=== PATIENT | female | born 1995 | race Caucasian/White ===

== ENCOUNTER 2019-05-11 19:22 | Inpatient (IN) ==
[2019-05-11] MEDS ORDERED: BRETHINE SUBQ PRN (19:29)
[2019-05-11] MEDS ORDERED: TYLENOL PO PRN (19:29)
[2019-05-11] MEDS ORDERED: LR 1,000 ML IV ONE (19:29)
[2019-05-11] MEDS ORDERED: PEPCID PO ONE (19:29)
[2019-05-11] MEDS ORDERED: KEFZOL 1 GM/D5W 1 GM/50 ML IVPB IV PRN (19:29)
[2019-05-11] MEDS ORDERED: PEPCID IV PRN (19:29)
[2019-05-11] MEDS ORDERED: ZOFRAN IV PRN (19:29)
[2019-05-11] MEDS ORDERED: PEPCID PO PRN (19:29)
[2019-05-11] MEDS ORDERED: STADOL IV PRN ×3 (19:29)
[2019-05-11 20:25] LABS: BASO# 0.01 X1000 (0.0-0.2); BASO% 0.1 % (0.0-0.8); EOS# 0.14 X1000 (0.0-0.7); EOS% 1.6 % (0.0-10.0); HEMATOCRIT 40.3 % (37.0-47.0); HEMOGLOBIN 13.6 g/dL (12.0-16.0); IMM GRAN# 0.08 X1000 (0.0-0.04); IMM GRAN% 0.9 % (0.0-0.5); LYMPH# 2.32 X1000 (1.2-3.4); MCH 30.9 PG (27-31); MCHC 33.7 g/dL (33-37); MCV 91.6 FL (81-99); MONO# 1.13 X1000 (0.11-0.59); MONO% 13.1 % (1.7-9.3); MPV 11.5 FL (7.4-10.4); NEUT# 4.92 X1000 (1.4-6.5); NEUT% 57.3 % (42.2-75.2); PLT 219 X1000 (130-400); RDW 13.7 % (11.5-14.5)
[2019-05-11] MEDS ORDERED: CYTOTEC VAG SCH (21:00)
[2019-05-11] MEDS: AMBIEN PO PRN (22:06)
[2019-05-12] MEDS ORDERED: CYTOTEC VAG ONE (04:00)
[2019-05-12] MEDS ORDERED: PITOCIN 30 UNITS/NS 30 UNIT/500 ML IV.SOLN IV SCH (07:00)
[2019-05-12] MEDS ORDERED: XYLOCAINE-MPF 1% INJ ONE (07:20)
[2019-05-12] MEDS ORDERED: MINERAL OIL TOP ONE (07:20)
[2019-05-12] MEDS ORDERED: NAROPIN 0.2% INJ ONE (08:00)
[2019-05-12] MEDS ORDERED: FENTANYL-BUPIV-NS 500 MCG-0.125% 250 ML EPIDURAL SCH (08:00)
[2019-05-12] MEDS: LR 1,000 ML IV SCH ×3 (08:16→18:13)
[2019-05-12] MEDS ORDERED: KEFZOL 2 GM/D5W 2 GM/50 ML IVPB IV ONE (13:41)
[2019-05-12] MEDS ORDERED: BICITRA PO ONE (13:41)
[2019-05-12] MEDS: REGLAN PO ONE ×2 (13:50→13:51)
[2019-05-12] MEDS ORDERED: MARCAINE 0.5% PF ONE (13:55)
[2019-05-12] MEDS ORDERED: MORPHINE ONE (14:22)
[2019-05-12] MEDS ORDERED: DEMEROL ONE (14:23)
[2019-05-12] MEDS ORDERED: PITOCIN IV ONE (14:24)
[2019-05-12] MEDS ORDERED: PITOCIN ONE (14:24)
--- NOTE | 2019-05-12 14:50 | HISTORY AND PHYSICAL ---
HISTORY OF PRESENT ILLNESS: Ms. Gallegos is a 23-year-old, G1, P0, at 39 weeks and 4 days who presents for elective induction of labor. Reports good movement. Denies contractions, leakage of fluid, or vaginal bleeding. PAST MEDICAL HISTORY: Includes right leg herpetic lesion, resolved antepartum with valacyclovir, recurrent UTIs, tobacco abuse, failed 1 hour oral glucose tolerance test with a normal 3 hour glucose tolerance test. CURRENT MEDICATIONS: Zoloft 50 mg daily, valacyclovir 1000 mg daily, vitamins daily. ALLERGIES: No known drug allergies. FAMILY HISTORY: Mother with ovarian cancer. 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 Denies STD exposure. OBSTETRICAL HISTORY: G1, P0, uncomplicated current . SOCIAL HISTORY: Positive tobacco use. Denies alcohol or drug use. SURGICAL HISTORY: None. PHYSICAL EXAMINATION: VITAL SIGNS: Temperature 97.5 degrees, pulse rate 67, respirations 16, blood pressure 128/73. PHYSICAL EXAMINATION: GENERAL: No acute distress. Alert, awake, oriented x3. CARDIOVASCULAR: Regular rate and rhythm. Positive S1, S2. RESPIRATORY: Clear to auscultation bilaterally. Negative rhonchi, rales, or wheezing. ABDOMEN: Gravid, nontender to palpation. PELVIC: Vaginal exam, 4 cm dilated, 80% effaced, -2 station. Electronic monitoring 145 beats per minute baseline, negative accelerations, moderate variability, and recurrent late decelerations. Grants contractions occurring every 2 to 4 minutes. LABORATORY: WBCs 8.6, hemoglobin 13.6, hematocrit 40.3, platelets 219,000. RPR nonreactive. Gonorrhea negative. Chlamydia negative. HIV negative. ASSESSMENT: Ms. Gallegos is a 23-year-old, G1, P0, at 39 weeks and 5 days who presents for elective induction of labor with category 3 tracing. PLAN: Induce with Cytotec per vagina 25 mcg x1 dose. Augmentation with Pitocin. Pain management with epidural. Resuscitative measures performed with category 3 tracing. No resolution requiring urgent delivery. Patient counseled on risks, benefits, alternatives to induction. The patient understands risks not limited to infection, bleeding, vaginal laceration, vacuum delivery, and emergency . Risks of not limited to infection, bleeding, injury to surrounding organs including bowel, bladder, and ureter. The patient understands risks and agrees to procedure. [facility]
[2019-05-12] MEDS ORDERED: PITOCIN 20 UNITS/NS 20 UNITS/1,000 ML IV.SOLN IV ONE (15:04)
[2019-05-12] MEDS ORDERED: AMBIEN PO PRN (15:04)
[2019-05-12] MEDS ORDERED: ATARAX PO PRN (15:04)
[2019-05-12] MEDS ORDERED: PITOCIN IM PRN (15:04)
[2019-05-12] MEDS ORDERED: M-M-R II VACCINE SUBQ ONE (15:04)
[2019-05-12] MEDS ORDERED: DEMEROL PO PRN ×2 (15:04)
[2019-05-12] MEDS ORDERED: DEMEROL IM PRN (15:04)
[2019-05-12] MEDS ORDERED: DULCOLAX PR PRN (15:04)
[2019-05-12] MEDS ORDERED: BOOSTRIX VACCINE IM ONE (15:04)
[2019-05-12] MEDS ORDERED: MYLICON PO PRN (15:04)
[2019-05-12] MEDS ORDERED: HYDROXYZINE IM PRN (15:04)
[2019-05-12] MEDS ORDERED: PHENERGAN IM PRN (15:04)
[2019-05-12] MEDS ORDERED: PITOCIN 10 UNITS/NS 1,000 ML IV SCH (15:15)
[2019-05-12] MEDS ORDERED: NARCAN IV PRN (15:45)
[2019-05-12] MEDS ORDERED: BENADRYL IV PRN (15:45)
[2019-05-12] MEDS ORDERED: ZOFRAN IV PRN (16:00)
[2019-05-12] MEDS ORDERED: PHENERGAN IV PRN (16:00)
[2019-05-12] MEDS ORDERED: SODIUM CHLORIDE 0.9% INJ PRN (16:00)
[2019-05-12] MEDS: MORPHINE PCA IV PRN (17:04)
[2019-05-12] MEDS: TORADOL IV SCH ×2 (17:16→22:11)
[2019-05-12] MEDS: OFIRMEV 1000 MG/ISOTONIC SOLN 1,000 MG/100 ML BOTTLE IV SCH (18:05)
[2019-05-12] MEDS: MYLICON PO SCH ×2 (18:08→22:11)
[2019-05-12] MEDS: PERICOLACE PO SCH (22:11)
[2019-05-13] MEDS: OFIRMEV 1000 MG/ISOTONIC SOLN 1,000 MG/100 ML BOTTLE IV SCH ×2 (00:25→06:10)
[2019-05-13] MEDS: MORPHINE PCA IV PRN (03:17)
[2019-05-13] MEDS: TORADOL IV SCH ×2 (04:00→10:19)
[2019-05-13 05:25] LABS: BASO# 0.02 X1000 (0.0-0.2); BASO% 0.2 % (0.0-0.8); EOS# 0.11 X1000 (0.0-0.7); EOS% 1.2 % (0.0-10.0); HEMATOCRIT 37.6 % (37.0-47.0); HEMOGLOBIN 12.7 g/dL (12.0-16.0); IMM GRAN# 0.03 X1000 (0.0-0.04); IMM GRAN% 0.3 % (0.0-0.5); LYMPH# 1.79 X1000 (1.2-3.4); LYMPH% 19.3 % (20.5-51.1); MCH 31.7 PG (27-31); MCHC 33.8 g/dL (33-37); MCV 93.8 FL (81-99); MONO# 0.96 X1000 (0.11-0.59); MONO% 10.3 % (1.7-9.3); MPV 11.3 FL (7.4-10.4); NEUT# 6.37 X1000 (1.4-6.5); NEUT% 68.7 % (42.2-75.2); PLT 163 X1000 (130-400); RBC 4.01 XMIL (4.2-5.4); RDW 14.1 % (11.5-14.5); WBC 9.28 X1000 (4.8-10.8)
--- NOTE | 2019-05-13 06:57 | OB/GYN PROGRESS NOTE ---
- Subjective Pt seen and examined. Pt is POD #1 s/p primary CD for NRFHT. 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 Denies ambulation or flatus. Tolerating clears, denies N/V. +bottle feeding. OB Physical Exam Vital Signs - 8 hr 05/13/19 00:00 05/13/19 04:00 Temperature 96.9 F L 97.0 F L Pulse Rate 73 66 Respiratory Rate 18 18 Blood Pressure 131/79 124/70 O2 Sat by Pulse Oximetry 93 L - CONSTITUTIONAL General Appearance: appears well, alert, no apparent distress - RESPIRATORY Respiratory: lungs clear, normal breath sounds - CARDIOVASCULAR Cardiovascular: regular rate, rhythm - GASTROINTESTINAL (ABDOMEN) Abdominal Exam: normal bowel sounds, soft, other (appropriately tender to palpation) - MUSCULOSKELETAL Extremity: non-tender - SKIN Integumentary: normal color (Incision: c/d/i), warm/dry Active Medications Generic Name Dose Route Start Last Admin Trade Name Freq PRN Reason Stop Dose Admin Acetaminophen 650 mg 05/11/19 19:29 Tylenol PO Q4-6H PRN PRN Headache Hydrocodone Bitart/Acetaminophen 1 each 05/12/19 15:04 [place]-10 PO Q3-4H PRN PRN Pain (7-10 on Pain Scale) Bisacodyl 10 mg 05/12/19 15:04 Dulcolax [place] PRN PRN gas unrelieved by Mylicon Butorphanol Tartrate 2 mg 05/11/19 19:29 05/12/19 08:48 Stadol IV 2 mg Q2H PRN PRN Administration Pain (5-10 on Pain Scale) Butorphanol Tartrate 2 mg 05/11/19 19:29 Stadol IV PRN PRN Pain Butorphanol Tartrate 1 mg 05/11/19 19:29 Stadol IV Q2H PRN PRN Pain (1-4 on Pain Scale) Diphenhydramine HCl 12.5 - 25 mg 05/12/19 15:45 Benadryl IV Q6H PRN PRN Itching Famotidine 20 mg 05/11/19 19:29 Pepcid IV Q12H PRN PRN GI upset or indigestion Famotidine 20 mg 05/11/19 19:29 Pepcid PO Q12H PRN PRN GI upset or indigestion Hydroxyzine HCl 50 mg 05/12/19 15:04 Hydroxyzine IM Q3-4H PRN PRN Nausea Hydroxyzine HCl 50 mg 05/12/19 15:04 Atarax PO Q3-4H PRN PRN Nausea Cefazolin Sodium/Dextrose 1 gm in 50 mls @ 100 mls/hr 05/11/19 19:29 Kefzol 1 Gm/D5w IV ONCE PRN PRN section Lactated Ringer's 1,000 mls @ 125 mls/hr 05/12/19 07:00 05/12/19 18:13 Lr IV Not Given .Q8H ROBYN Fentanyl/Bupivacaine/Sodium Chlor 250 mls @ 0 mls/hr 05/12/19 08:00 05/12/19 10:25 Psezkkwi-Edver-Ph 500 Mcg-0.125% EPIDURAL 13 mls/hr .Q0M ROBYN Administration As Directed Oxytocin/Sodium Chloride 1,000 mls @ 125 mls/hr 05/12/19 15:15 Pitocin 10 Units/Ns IV 05/13/19 07:14 .Q8H ROBYN Acetaminophen 1,000 mg in 100 mls @ 400 mls/hr 05/12/19 18:00 05/13/19 06:10 Ofirmev 1000 Mg/Isotonic Soln IV 05/13/19 12:14 400 mls/hr Q6H ROBYN Administration Ibuprofen 800 mg 05/12/19 15:04 Motrin PO Q8H PRN PRN Pain Ketorolac Tromethamine 30 mg 05/12/19 16:00 05/13/19 04:00 Toradol IV 05/13/19 10:01 30 mg Q6H ROBYN Administration Meperidine HCl 50 mg 05/12/19 15:04 Demerol IM Q3H PRN PRN Pain Meperidine HCl 50 mg 05/12/19 15:04 Demerol PO Q4H PRN PRN Pain (1-6 on Pain Scale) Meperidine HCl 100 mg 05/12/19 15:04 Demerol PO Q4H PRN PRN Pain (7-10 on Pain Scale) Morphine Sulfate 0 mg 05/12/19 15:45 05/13/19 03:17 Morphine Rn Testing IV 30 mg PRN PRN Administration Pain Naloxone HCl 0.2 mg 05/12/19 15:45 Narcan IV PRN PRN DECREASED RESPIRATORY RATE Ondansetron HCl 4 mg 05/11/19 19:29 Zofran IV PRN PRN Nausea Ondansetron HCl 4 mg 05/12/19 16:00 Zofran IV Q24H PRN PRN Nausea Oxytocin 20 unit 05/12/19 15:04 Pitocin IM PRN PRN Severe bleeding Promethazine HCl 25 mg 05/12/19 15:04 Phenergan IM Q3H PRN PRN Pain Promethazine HCl 12.5 mg 05/12/19 16:00 Phenergan IV Q6H PRN PRN Nausea Senna/Docusate Sodium 1 each 05/12/19 21:00 05/12/19 22:11 Pericolace PO 1 each QHS ROBYN Administration Sertraline HCl 50 mg 05/13/19 09:00 Zoloft PO DAILY ROBYN Simethicone 80 mg 05/12/19 18:00 05/12/19 22:11 Mylicon PO 80 mg PC + HS ROBYN Administration Simethicone 80 mg 05/12/19 15:04 Mylicon PO PRN PRN GAS Sodium Chloride 10 ml 05/12/19 16:00 Sodium Chloride 0.9% INJ PRN PRN TO DILUTE PHENERGAN FOR IV USE Terbutaline Sulfate 0.25 mg 05/11/19 19:29 Brethine SUBQ PRN PRN tachysystole/hypertonus Zolpidem Tartrate 10 mg 05/11/19 19:29 05/11/19 22:06 Ambien PO 10 mg HS PRN PRN Administration Sleep Zolpidem Tartrate 10 mg 05/12/19 15:04 Ambien PO HS PRN PRN Sleep Laboratory Results - last 24 hr 05/13/19 04:59 WBC 9.28 RBC 4.01 L Hgb 12.7 Hct 37.6 MCV 93.8 MCH 31.7 H MCHC 33.8 RDW Std Deviation 14.1 Plt Count 163 MPV 11.3 H Immature Gran % (Auto) 0.3 Neut % (Auto) 68.7 Lymph % (Auto) 19.3 L Ness % (Auto) 10.3 H Eos % (Auto) 1.2 Baso % (Auto) 0.2 Immature Gran # (Auto) 0.03 Neut # (Auto) 6.37 Lymph # (Auto) 1.79 Ness # (Auto) 0.96 H Eos # (Auto) 0.11 Baso # (Auto) 0.02 OB Assessment & Plan (1) delivery delivered Status: Acute Plan: 23yo POD#1 s/p primary CD secondary to NRFHT -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
[2019-05-13] MEDS: ZOLOFT PO SCH (09:00)
[2019-05-13] MEDS: MYLICON PO SCH ×4 (09:01→20:37)
[2019-05-13] MEDS: NORCO-10 PO PRN ×3 (10:23→19:14)
[2019-05-13] MEDS: MOTRIN PO PRN ×2 (14:08→22:01)
[2019-05-13] MEDS ORDERED: LR 1,000 ML IV SCH (15:04)
[2019-05-13] MEDS: PERICOLACE PO SCH (20:37)
[2019-05-13] MEDS: PERCOCET-10 PO PRN (22:01)
[2019-05-14] MEDS: PERCOCET-10 PO PRN ×4 (03:34→19:03)
--- NOTE | 2019-05-14 08:27 | OB/GYN PROGRESS NOTE ---
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 Her pain is controlled. She notes normal lochia. She is ambulating and voiding without difficulty. She is not passing flatus yet. She denies any fever, chills, nausea, vomiting. She is tolerating a regular diet. She is undecided on PP contraception. OB Physical Exam Vital Signs - 8 hr 05/14/19 03:37 Temperature 98.3 F Pulse Rate 107 H Respiratory Rate 18 Blood Pressure 115/67 O2 Sat by Pulse Oximetry 95 - CONSTITUTIONAL General Appearance: appears well, alert, no apparent distress - EYES Eyes: PERRL/EOMI - HEAD, EARS, NOSE, MOUTH & THROAT HENMT: normocephalic/atraumatic - RESPIRATORY Respiratory: lungs clear, normal breath sounds, no respiratory distress - CARDIOVASCULAR Cardiovascular: regular rate, rhythm - GASTROINTESTINAL (ABDOMEN) Abdominal Exam: normal bowel sounds, soft, other (fundus firm, at umbilicus. Pfannensteil skin incision C/D/I) - MUSCULOSKELETAL Extremity: pedal edema DTR: knee (R): 3+, knee (L): 3+ - SKIN Integumentary: normal color - NEUROLOGIC Neurologic: grossly normal - PSYCHIATRIC Psych/Mental Status: normal mood/affect Active Medications Generic Name Dose Route Start Last Admin Trade Name Freq PRN Reason Stop Dose Admin Acetaminophen 650 mg 05/11/19 19:29 Tylenol PO Q4-6H PRN PRN Headache Hydrocodone Bitart/Acetaminophen 1 each 05/12/19 15:04 05/13/19 19:14 [place]-10 PO 1 each Q3-4H PRN PRN Administration Pain (7-10 on Pain Scale) Bisacodyl 10 mg 05/12/19 15:04 Dulcolax AR PRN PRN gas unrelieved by Mylicon Diphenhydramine HCl 12.5 - 25 mg 05/12/19 15:45 Benadryl IV Q6H PRN PRN Itching Famotidine 20 mg 05/11/19 19:29 Pepcid PO Q12H PRN PRN GI upset or indigestion Hydroxyzine HCl 50 mg 05/12/19 15:04 Hydroxyzine IM Q3-4H PRN PRN Nausea Hydroxyzine HCl 50 mg 05/12/19 15:04 Atarax PO Q3-4H PRN PRN Nausea Cefazolin Sodium/Dextrose 1 gm in 50 mls @ 100 mls/hr 05/11/19 19:29 Kefzol 1 Gm/D5w IV ONCE PRN PRN section Fentanyl/Bupivacaine/Sodium Chlor 250 mls @ 0 mls/hr 05/12/19 08:00 05/12/19 10:25 Ayeobvpb-Xacaa-Kc 500 Mcg-0.125% EPIDURAL 13 mls/hr .Q0M ROBYN Administration As Directed Ibuprofen 800 mg 05/12/19 15:04 05/13/19 22:01 Motrin PO 800 mg Q8H PRN PRN Administration Pain Meperidine HCl 50 mg 05/12/19 15:04 Demerol IM Q3H PRN PRN Pain Meperidine HCl 50 mg 05/12/19 15:04 Demerol PO Q4H PRN PRN Pain (1-6 on Pain Scale) Meperidine HCl 100 mg 05/12/19 15:04 Demerol PO Q4H PRN PRN Pain (7-10 on Pain Scale) Morphine Sulfate 0 mg 05/12/19 15:45 05/13/19 03:17 Morphine [place] Ripper IV 30 mg PRN PRN Administration Pain Naloxone HCl 0.2 mg 05/12/19 15:45 Narcan IV PRN PRN DECREASED RESPIRATORY RATE Oxycodone/Acetaminophen 1 each 05/13/19 20:49 05/14/19 03:34 Percocet-10 PO 1 each Q4H PRN PRN Administration Pain Oxytocin 20 unit 05/12/19 15:04 Pitocin IM PRN PRN Severe bleeding Promethazine HCl 25 mg 05/12/19 15:04 Phenergan IM Q3H PRN PRN Pain Senna/Docusate Sodium 1 each 05/12/19 21:00 05/13/19 20:37 Pericolace PO 1 each QHS ROBYN Administration Sertraline HCl 50 mg 05/13/19 09:00 05/13/19 09:00 Zoloft PO 50 mg DAILY ROBYN Administration Simethicone 80 mg 05/12/19 18:00 05/13/19 20:37 Mylicon PO 80 mg PC + HS ROBYN Administration Simethicone 80 mg 05/12/19 15:04 Mylicon PO PRN PRN GAS Sodium Chloride 10 ml 05/12/19 16:00 Sodium Chloride 0.9% INJ PRN PRN TO DILUTE PHENERGAN FOR IV USE Terbutaline Sulfate 0.25 mg 05/11/19 19:29 Brethine SUBQ PRN PRN tachysystole/hypertonus Zolpidem Tartrate 10 mg 05/11/19 19:29 05/11/19 22:06 Ambien PO 10 mg HS PRN PRN Administration Sleep Zolpidem Tartrate 10 mg 05/12/19 15:04 Ambien PO HS PRN PRN Sleep OB Assessment & Plan (1) delivery delivered Status: Acute Plan: 23 yo POD#2 s/p 1LTCS with HSV-2, anxiety/depression, failed 1 hr/passed 3 hr 1. HD stable, afebrile 2. Routine PP care 3. Encourage ambulation 4. Undecided on PP contraception
[2019-05-14] MEDS: ZOLOFT PO SCH (08:39)
[2019-05-14] MEDS: MOTRIN PO PRN ×2 (08:40→17:07)
[2019-05-14] MEDS: MYLICON PO SCH ×4 (08:40→20:55)
[2019-05-14] MEDS: PERICOLACE PO SCH (20:55)
[2019-05-14] MEDS: AMBIEN PO PRN (20:55)
[2019-05-15] MEDS: PERCOCET-10 PO PRN ×3 (07:03→14:25)
[2019-05-15] MEDS: MOTRIN PO PRN (07:04)
[2019-05-15 08:22] VITALS: BP 131/80
[2019-05-15] MEDS: ZOLOFT PO SCH (08:29)
[2019-05-15] MEDS: MYLICON PO SCH ×2 (08:29→14:26)
--- NOTE | 2019-05-15 09:15 | DISCHARGE SUMMARY ---
ADMISSION DATE: 05/11/2019 DISCHARGE DATE: 05/15/2019 HISTORY OF PRESENT ILLNESS: This patient is a 23-year-old, 1, para 0, at 39 weeks and 4 days, who presents for elective induction of labor. Her past medical history includes herpes, recurrent UTIs, tobacco use. CURRENT MEDICATIONS: Zoloft, valacyclovir, vitamins. ALLERGIES: No known drug allergies. FAMILY HISTORY: Her mother had ovarian cancer. This is her first baby, uncomplicated course HOSPITAL COURSE: The patient was admitted. She was given Cytotec x1 dose and augmented with Pitocin. The patient was taken for section for compound presentation. The surgery was uncomplicated. Her postop course was uncomplicated. Her blood pressure was normal at 129/84 with a pulse of 65. On laboratory review, her hematocrit went from 40.3 to 37.6 and was otherwise unremarkable. She verbalized understanding of all discharge instructions, and all questions were answered. She was discharged home on day number 3 with followup in the office in approximately 2 weeks to check her incision. She verbalized understanding of all discharge instructions. [facility]
--- NOTE | 2019-05-22 05:20 | OPERATIVE NOTE ---
PROCEDURE DATE: 05/12/2019 SURGEON: Dr. Maris Chavez LUMBER BEARER: Radha Kay. PREOPERATIVE DIAGNOSIS: Intrauterine at 39 weeks and 5 days, category 3 tracing, and nonreassuring heart tracing. POSTOPERATIVE DIAGNOSIS: Intrauterine at 39 weeks and 5 days, category 3 tracing, and nonreassuring heart tracing. PROCEDURE PERFORMED: Primary low-transverse delivery section. ANESTHESIA: Epidural. ESTIMATED BLOOD LOSS: 600 mL. FINDINGS: Viable female weighing 6 pounds 5 ounce ounces with Apgars of 7, 8 and 9 at 1, 5 and 10 minutes. Nuchal cord x1. Body cord x2. SPECIMENS REMOVED: Placenta. COMPLICATIONS: None. SURGICAL RISK: The patient was informed of the risks and benefits of the procedure. Risks included, but were not limited to, bleeding, infection, injury to internal organs and possible hysterectomy. Patient expressed understanding of the risks involved. All questions were addressed, and the patient consented to the procedure. DESCRIPTION OF PROCEDURE: The patient was taken to the operating room where a time-out was performed to confirm correct patient and correct procedure. Epidural anesthesia was adequately established and prophylactic intravenous antibiotics were administered. The patient was then placed in a dorsal supine position with a left tilt of the hips. The patient was prepped and draped in the usual sterile fashion for a Pfannenstiel skin incision. An incision was made in the skin with a surgical scalpel, and sharp dissection was carried out over subsequent layers of tissue including the fascia followed by the Bovie electrocautery for hemostasis. The fascia was incised at the midline, and the fascial incision was then extended bilaterally using the Bovie electrocautery. The inferior edge of the fascial incision was grasped with Crystal clamps, tented up, and the underlying rectus muscles were dissected off bluntly using the Bovie electrocautery. Attention was then turned to the superior edge which was grasped with Crystal clamps, tented up, and the underlying rectus muscles were dissected off bluntly using the Bovie electrocautery. The rectus muscles were then divided at the midline. The peritoneum was identified and bluntly entered at its superior margin taking care to avoid the bladder. The peritoneal incision was extended superiorly and inferiorly using a Bovie electrocautery with good visualization of the bladder. The bladder blade was inserted, and the vesicouterine peritoneum was identified, and grasped with smooth pickups, and cut laterally to both sides using the Metzenbaum scissors. A bladder flap was created using blunt and sharp dissection using the Metzenbaum scissors. The bladder blade was reinserted, and a transverse incision was made in the lower uterine segment using the scalpel. The uterine incision was extended bilaterally using blunt dissection. The amniotic sac was entered, and the amniotic fluid was noted to be clear. The surgeon's hand was placed in the uterine cavity. The head was identified, elevated into the abdomen, and delivered through the uterine incision with the assistance of fundal pressure. The was examined for nuchal cord. Nuchal cord x1 was identified and reduced. The infant was then delivered with traction and the assistance of fundal pressure. The body cord x2 was identified and reduced after delivery. The 's oral nasal passages were bulb suctioned. On delivery, the cord was clamped and cut. The was then passed off the table to waiting time clock repairer staff for further care. Cord blood was obtained for analysis and routine blood testing. The placenta delivered via manual extraction intact with a three-vessel cord. Oxytocin was administered by IV infusion to enhance uterine contractions. The uterus was exteriorized, and cleared of all clots and remaining products of conception. The uterine incision was reapproximated using 0 Monocryl in a running locked fashion. Hemostatic areas were reinforced with 0 Monocryl in a [id number] stitch. Good hemostasis was confirmed. The uterus was replaced into the abdomen. The pericolic gutters were cleared of all clots. The fascia was reapproximated using 0 Vicryl in a running nonlocked fashion. The subcutaneous tissue was reapproximated using 2-0 plain gut suture in a running nonlocked fashion. The skin was reapproximated using 4-0 Monocryl on a Stefan stitch insert in a subcuticular fashion. All needle, sponge, and instrument counts were noted to be correct x2 at the end of the procedure. The patient tolerated the procedure well, and was transferred to the recovery room in stable condition.
== END 2019-05-15 15:45 | disposition home or self-care (01) | DRG 787 ==
LOC: LD 19:22
PROVIDERS: ADMIT Obstetrics & Gynecology; ATTEND Obstetrics & Gynecology